=== PATIENT | female | born 1960 | race Caucasian/White ===

== ENCOUNTER 2017-08-14 09:02 | Outpatient (CLI) | payer BC ==
--- NOTE | 2017-08-14 11:10 | RAD ---
PA AND LATERAL CHEST: Date: 08/14/17 INDICATION: History of dyspnea. COMPARISON: Prior exam dated 07/21/17. FINDINGS: Lungs are clear. Cardiomediastinal silhouette is within normal limits. There are surgical clips withi n the right upper quadrant. There is scattered degenerative change. IMPRESSION: No acute cardiopulmonary abnormality when compared to the prior study dated 07/21/17. POS: TONY
== END 2017-08-14 09:03 | disposition home or self-care (01) ==
LOC: RAD 09:02
PROVIDERS: ATTEND Internal Medicine Critical Care Medicine
DX: R06.00 Dyspnea, unspecified (principal)
CPT/HCPCS: 71046

== ENCOUNTER 2017-08-27 09:14 | Outpatient (CLI) | payer BC | END 2017-08-27 09:15 | disposition home or self-care (01) | LOC: BICMAMMO 09:14 | PROVIDERS: ATTEND Internal Medicine | DX: N64.4 Mastodynia (principal); Z80.3 Family history of malignant neoplasm of breast | CPT/HCPCS: 77066; G0279 ==

== ENCOUNTER 2017-12-18 09:13 | Outpatient (CLI) | payer BC ==
--- NOTE | 2017-12-18 10:46 | CT ---
CT ABDOMEN AND PELVIS WITH CONTRAST: Technique: Multiple axial tomograms were obtained through the abdomen and pelvis with IV enhancement. Oral contrast was administered. Indications: Abdominal pain. Diverticulitis. Surgical history includes cholecystectomy and appendecto my. FINDINGS: The lungs are clear. Liver, spleen, and pancreas unremarkable. Stomach and duodenum unremarkable. Adrenal glands appear normal. Kidneys are unremarkable. Small bowel loops appear normal caliber. There is stool throughout the colon. Diverticulosis of the left colon. There is some minimal strandin g along the lower left colon which could represent changes from prior diverticulitis or possibly some early minimal diverticulitis change. There is no evidence of significant inflammatory process by CT. No extraluminal gas or fluid collection seen. Aorta is normal caliber. No adenopathy. Images through the pelvis show evidence of hysterectomy. There is a small umbilical hernia with mesenteric fat herniated through the defect. IMPRESSION: 1. Diverticulosis in the left colon. Mild stranding along the mid to lower left colon could represent changes from mild or prior diverticulitis. No evidence of extraluminal gas, fluid, or abscess. POS: [facility]
[2017-12-18] MEDS ORDERED: Iopamidol 370 76% 100 ML VIAL ONE (15:19)
== END 2017-12-18 09:14 | disposition home or self-care (01) ==
LOC: CT 09:13
PROVIDERS: ATTEND Internal Medicine
DX: K57.92 Diverticulitis of intestine, part unspecified, without perforation or abscess without bleeding (principal); K57.30 Diverticulosis of large intestine without perforation or abscess without bleeding
CPT/HCPCS: 74177

== ENCOUNTER 2018-05-01 10:31 | Inpatient (IN) | payer BC ==
[2018-05-01 10:57] LABS: #Eosinphils 0.1 thou/uL (0.0-0.7); #Lymphocytes 3.2 thou/uL (1.20-3.40); #Monocytes 0.4 thou/uL (0.11-0.59); #Neutrophils 3.7 thou/uL (1.40-6.50); %Basophils 0.4 % (0.0-1.0); %Eosinophils 1.4 % (0.0-10.0); %Lymphocytes 43.4 % (21.0-51.0); %Monocytes 4.9 % (0.0-10.0); Hemoglobin 14.8 g/dL (12.0-16.0); Mean Corpuscular HGB CONC 33.8 g/dL (32.0-36.0); Mean Corpuscular Hemoglobin 29.7 pg (27.0-31.0); Mean Corpuscular Volume 87.9 fL (78.0-98.0); Mean Platelet Volume 7.5 fL (7.4-10.4); Platelet Count 200 thou/uL (130-400); RBC Distribution Width 11.9 % (11.5-14.5); White Blood Cell (WBC) Count 7.5 thou/uL (4.8-10.8)
[2018-05-01] MEDS ORDERED: Lorazepam 2 MG/ML VIAL ONE (11:10)
--- NOTE | 2018-05-01 11:14 | RAD ---
CHEST 1 VIEW: HISTORY: Chest pain. COMPARISON: Chest radiograph 08/14/2017. FINDINGS: Heart size is enlarged. Mild pulmonary venous congestion and early edema. No pneumothorax or large effusion. IMPRESSION: Cardiomegaly and mild pulmonary edema. POS: T[facility]
[2018-05-01 11:17] LABS: ALT (SGPT) 22 U/L (8-55); AST (SGOT) 25 U/L (5-34); Albumin 4.4 g/dL (3.5-5.0); Alkaline Phosphatase 87 U/L (40-150); Anion Gap 15 mmol/L (10-20); BUN (Urea Nitrogen) 16 mg/dL (9.8-20.1); Bilirubin, Total 0.7 mg/dL (0.2-1.2); CK (CPK) 165 U/L (29-168); Calc. Creatinine Clearance 0 mL/min (70-130); Calcium 9.5 mg/dL (7.8-10.44); Carbon Dioxide 23 mmol/L (22-29); Chloride 106 mmol/L (98-107); Estimated GFR-MDRD 84; Globulin 2.8 g/dL (2.4-3.5); Glucose 110 mg/dL (70-105); Lipase 15 U/L (8-78); Potassium 4.2 mmol/L (3.5-5.1); Protein, Total 7.2 g/dL (6.0-8.3); Sodium 140 mmol/L (136-145)
[2018-05-01] MEDS ORDERED: Ondansetron PF 4 MG/2 ML Vial ONE (11:19)
[2018-05-01] MEDS ORDERED: Nitroglycerin 2% Ointment 1 INCH/1 GM Packet ONE (11:40)
[2018-05-01] MEDS ORDERED: Acetaminophen 325 MG TAB PO PRN (13:43)
[2018-05-01 13:55] VITALS: BMI 40.1
[2018-05-01 14:56] LABS: Cardiac Risk 2.2 (Less than 4.5)
[2018-05-01 15:02] LABS: Troponin I 0.034 ng/mL (< 0.028)
[2018-05-01] MEDS: Lorazepam 2 MG/ML VIAL SLOW IVP PRN (15:19)
[2018-05-01 17:47] LABS: Troponin I 0.028 ng/mL (< 0.028)
[2018-05-01] MEDS: Mometasone/Formoterol 120 PUFF INHALER INH SCH (19:21)
[2018-05-01] MEDS: Losartan 25 MG TAB PO SCH (20:03)
[2018-05-01] MEDS: Atorvastatin Calcium 40 MG TAB PO SCH (20:03)
[2018-05-01] MEDS: diphenhydrAMINE 25 MG CAP PO SCH (20:03)
[2018-05-01] MEDS: Famotidine 20 MG TAB PO SCH (20:04)
[2018-05-01] MEDS: Venlafaxine HCl XR 75 MG CAP PO SCH (20:04)
[2018-05-01] MEDS: Montelukast Sodium 10 mg Tablet PO SCH (20:04)
[2018-05-01] MEDS: Ipratropium Bromide 0.03% Nasal Inhaler 30 ml Bottle EA NARE SCH (20:05)
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
[2018-05-02 05:30] LABS: #Basophils 0.1 thou/uL (0.0-0.2); #Eosinphils 0.2 thou/uL (0.0-0.7); #Lymphocytes 2.9 thou/uL (1.20-3.40); #Monocytes 0.4 thou/uL (0.11-0.59); #Neutrophils 3.6 thou/uL (1.40-6.50); %Basophils 1.2 % (0.0-1.0); %Eosinophils 2.2 % (0.0-10.0); %Lymphocytes 40.8 % (21.0-51.0); %Monocytes 6.2 % (0.0-10.0); %Neutrophils 49.7 % (42.0-75.0); Hemoglobin 13.3 g/dL (12.0-16.0); Mean Corpuscular HGB CONC 33.1 g/dL (32.0-36.0); Mean Corpuscular Hemoglobin 29.7 pg (27.0-31.0); Mean Corpuscular Volume 89.6 fL (78.0-98.0); Mean Platelet Volume 7.1 fL (7.4-10.4); Platelet Count 168 thou/uL (130-400); RBC Distribution Width 11.8 % (11.5-14.5); Red Blood Cell (RBC) Count 4.48 mill/uL (4.20-5.40); White Blood Cell (WBC) Count 7.2 thou/uL (4.8-10.8)
[2018-05-02 05:44] LABS: Anion Gap 11 mmol/L (10-20); BUN (Urea Nitrogen) 16 mg/dL (9.8-20.1); Calc. Creatinine Clearance 149 mL/min (70-130); Calcium 8.9 mg/dL (7.8-10.44); Carbon Dioxide 27 mmol/L (22-29); Chloride 106 mmol/L (98-107); Estimated GFR-MDRD Greater than 90; Glucose 106 mg/dL (70-105); Sodium 140 mmol/L (136-145)
[2018-05-02] MEDS: Mometasone/Formoterol 120 PUFF INHALER INH SCH ×2 (06:48→18:34)
[2018-05-02] MEDS: Famotidine 20 MG TAB PO SCH ×2 (09:38→21:04)
[2018-05-02] MEDS: Enoxaparin Sodium 40 MG/0.4 ML SYRINGE SC SCH (09:38)
[2018-05-02] MEDS: Ipratropium Bromide 0.03% Nasal Inhaler 30 ml Bottle EA NARE SCH ×2 (09:39→21:06)
[2018-05-02] MEDS: Lorazepam 2 MG/ML VIAL SLOW IVP PRN (09:41)
[2018-05-02] MEDS ORDERED: Lorazepam 2 MG/ML VIAL SLOW IVP SCH (10:45)
--- NOTE | 2018-05-02 11:37 | PDOC.EVN ---
Event Note - Event Note Event Note: pt seen and examined bedside, history obtained from her, plan of care discussed with OPERATIONS RECRUITER, please see her note for details
--- NOTE | 2018-05-02 14:30 | NM ---
CARDIAC SPECT: CLINICAL HISTORY: 57-year-old female with chest pain, hypertension, and dyslipidemia. TECHNIQUE: A myocardial perfusion scan was performed using the single isotope two day protocol with 33 mCi techn etium-99m sestamibi injected intravenously for both stress and rest images. Pharmacologic stress with Lexiscan was monitored and interpreted by Dr. Recinos. FINDINGS: There is a small fixed defect in the distal anteroseptal wall. No reversible defects are seen. GATED SPECT LVEF: 35%. WALL MOTION EXAM: Global hypokinesis. IMPRESSION: No evidence of reversible ischemia. POS: [facility]
--- NOTE | 2018-05-02 15:10 | PDOC.PN ---
- Subjective Encounter Start Date: 05/02/18 Encounter Start Time: 12:30 Subjective: Patient in stress lab most of AM. Reports she still feels chest pressure -: Denies dizziness, palpations, cough. -: Was feeling very anxious during stress, reports feeling better - Objective Resuscitation Status - Order Detail: 05/01/18 17:11 Resuscitation Status Routine Co-Sign Provider: Resuscitation Status: FULL: Full Resuscitation Discussed with: patient Vital Signs & Weight: Vital Signs (12 hours) Temp Pulse Resp BP BP Pulse Ox 05/02/18 11:44 97.8 F 95 16 170/100 H 97 05/02/18 07:24 97.9 F 85 16 148/82 H 96 05/02/18 06:48 85 24 H 99 05/02/18 04:01 98.0 F 81 19 143/85 H 98 Weight Weight 99.427 kg I&O: 05/01/18 05/02/18 05/03/18 06:59 06:59 06:59 Intake Total 1060 Output Total 1000 Balance 60 Result Diagrams: 05/02/18 05:13 05/02/18 05:13 Phys Exam - Physical Examination HEENT: PERRLA, moist MMs Neck: no nodes, no JVD, full ROM Respiratory: clear to auscultation bilateral Cardiovascular: RRR, no significant murmur Gastrointestinal: soft, non-tender Musculoskeletal: pulses present trace edema to BLE Neurological: moves all 4 limbs Lymphatic: no nodes Psychiatric: normal affect, A&O x 3 Skin: no rash, normal turgor, cap refill <2 seconds Dx/Plan (1) Chest pain Code(s): R07.9 - CHEST PAIN, UNSPECIFIED Status: Acute (2) Pulmonary vascular congestion Code(s): R09.89 - OTH SYMPTOMS AND SIGNS INVOLVING THE CIRC AND RESP SYSTEMS Status: Acute (3) Hypertension Code(s): I10 - ESSENTIAL (PRIMARY) HYPERTENSION Status: Acute (4) Anxiety Code(s): F41.9 - ANXIETY DISORDER, UNSPECIFIED Status: Acute (5) Dyspnea on exertion Code(s): R06.09 - OTHER FORMS OF DYSPNEA Status: Acute - Plan cont current plan of care patient with EF 35%, no previous Echo or hx of CHF, vascular congestion/CXR -: C/o of fatigue, chest pain, GARCIA for several months -: ECHO taken, will await read and consult cardiology -: Stress neg for ischemia, patient informed of results -: Case discussed this am with Dr. Haines * .
[2018-05-02] MEDS ORDERED: ALPRAZolam 0.5 MG TAB PO SCH (17:00)
[2018-05-02] MEDS ORDERED: Acetaminophen 325 MG TAB PO PRN (18:33)
[2018-05-02] MEDS: Montelukast Sodium 10 mg Tablet PO SCH (21:04)
[2018-05-02] MEDS: diphenhydrAMINE 25 MG CAP PO SCH (21:04)
[2018-05-02] MEDS: Venlafaxine HCl XR 75 MG CAP PO SCH (21:04)
[2018-05-02] MEDS: ALPRAZolam 0.5 MG TAB PO SCH (21:05)
[2018-05-02] MEDS: Atorvastatin Calcium 40 MG TAB PO SCH (21:05)
[2018-05-02] MEDS: Losartan 25 MG TAB PO SCH (21:05)
[2018-05-03 05:09] LABS: #Basophils 0.1 thou/uL (0.0-0.2); #Eosinphils 0.1 thou/uL (0.0-0.7); #Monocytes 0.4 thou/uL (0.11-0.59); #Neutrophils 2.7 thou/uL (1.40-6.50); %Basophils 1.1 % (0.0-1.0); %Lymphocytes 47.7 % (21.0-51.0); %Monocytes 6.8 % (0.0-10.0); %Neutrophils 42.4 % (42.0-75.0); Hemoglobin 13.2 g/dL (12.0-16.0); Mean Corpuscular HGB CONC 33.4 g/dL (32.0-36.0); Mean Corpuscular Volume 89.6 fL (78.0-98.0); Mean Platelet Volume 7.4 fL (7.4-10.4); Platelet Count 158 thou/uL (130-400); RBC Distribution Width 11.6 % (11.5-14.5); White Blood Cell (WBC) Count 6.3 thou/uL (4.8-10.8)
[2018-05-03 05:34] LABS: Anion Gap 8 mmol/L (10-20); BUN (Urea Nitrogen) 10 mg/dL (9.8-20.1); Calc. Creatinine Clearance 160 mL/min (70-130); Calcium 8.8 mg/dL (7.8-10.44); Carbon Dioxide 29 mmol/L (22-29); Chloride 106 mmol/L (98-107); Estimated GFR-MDRD Greater than 90; Glucose 114 mg/dL (70-105); Potassium 4.1 mmol/L (3.5-5.1); Sodium 139 mmol/L (136-145)
[2018-05-03] MEDS: Mometasone/Formoterol 120 PUFF INHALER INH SCH ×2 (07:19→19:33)
[2018-05-03] MEDS: Lorazepam 1 MG TAB PO PRN ×3 (08:40→20:39)
[2018-05-03] MEDS: Furosemide 20 MG TAB PO SCH (08:40)
[2018-05-03] MEDS: Famotidine 20 MG TAB PO SCH ×2 (08:40→20:38)
[2018-05-03] MEDS: ALPRAZolam 0.5 MG TAB PO SCH (08:41)
[2018-05-03] MEDS: Ipratropium Bromide 0.03% Nasal Inhaler 30 ml Bottle EA NARE SCH ×2 (08:41→22:14)
[2018-05-03] MEDS: Enoxaparin Sodium 40 MG/0.4 ML SYRINGE SC SCH (08:41)
[2018-05-03] MEDS ORDERED: Metoprolol Tartrate 25 MG TAB PO SCH (09:00)
--- NOTE | 2018-05-03 09:49 | PDOC.PN ---
- Subjective Encounter Start Date: 05/03/18 Encounter Start Time: 09:30 Subjective: patient reports feeling very anxious this morning -: Was given Ativan and states she was feeling better -: Denies palpation, CP, SOB currently - Objective Resuscitation Status - Order Detail: 05/01/18 17:11 Resuscitation Status Routine Co-Sign Provider: Resuscitation Status: FULL: Full Resuscitation Discussed with: patient Vital Signs & Weight: Vital Signs (12 hours) Temp Pulse Resp BP Pulse Ox 05/03/18 07:31 97.9 F 82 18 165/97 H 96 05/03/18 07:19 80 16 Weight Weight 100.289 kg I&O: 05/02/18 05/03/18 05/04/18 06:59 06:59 06:59 Intake Total 1060 2580 Output Total 1000 2900 Balance 60 -320 Result Diagrams: 05/03/18 04:54 05/03/18 03:30 Phys Exam - Physical Examination HEENT: PERRLA, moist MMs Neck: no nodes, no JVD, full ROM Respiratory: no wheezing, clear to auscultation bilateral Cardiovascular: RRR, no significant murmur Gastrointestinal: soft, non-tender Neurological: non-focal, normal sensation Lymphatic: no nodes Psychiatric: normal affect, A&O x 3 Deviation from normal: Patient feeling better after Ativan, hx of anxiety Skin: no rash, normal turgor, cap refill <2 seconds Dx/Plan (1) Chest pain Code(s): R07.9 - CHEST PAIN, UNSPECIFIED Status: Acute (2) Pulmonary vascular congestion Code(s): R09.89 - OTH SYMPTOMS AND SIGNS INVOLVING THE CIRC AND RESP SYSTEMS Status: Acute (3) Hypertension Code(s): I10 - ESSENTIAL (PRIMARY) HYPERTENSION Status: Acute (4) Anxiety Code(s): F41.9 - ANXIETY DISORDER, UNSPECIFIED Status: Acute (5) Dyspnea on exertion Code(s): R06.09 - OTHER FORMS OF DYSPNEA Status: Acute (6) Cardiomyopathy Code(s): I42.9 - CARDIOMYOPATHY, UNSPECIFIED Status: Acute (7) Congestive heart failure Code(s): I50.9 - HEART FAILURE, UNSPECIFIED Status: Acute - Plan cont current plan of care, out of bed/ambulate, DVT proph w/lovenox Dr. Wright here to see patient, plan to do cardiac cath tomorrow -: Will convert to Inp status -: Echo with EF 20-25%, new CHF, cardiomyopathy (last Echo normal) -: Dr. Wright to change BP meds, add Coreg -: Patient requesting Ativan instead of Xanax when dc'd, has f/u appt on 05/08 * .
[2018-05-03] MEDS ORDERED: Communication Order-Pharmacy FS SCH (10:00)
--- NOTE | 2018-05-03 12:26 | STRESS ---
Acquisition Time: 2018-05-02 10:00:29 Total Exercise Time: 00:01:00 Test Indications: CHEST PAIN Medications: Protocol: LEXISCAN Max HR: 102 BPM 61% of Pred: 165 BPM Max BP: 160/090 mmHG Max Work Load: 1.0 METS RESTING ECG: NORMAL SINUS RHYTHM AT 87 BPM WITH RARE PVC'S SYMPTOMS: SHORTNESS OF BREATH AND CHEST PAIN NORMAL BP RESPONSE ECTOPY: NONE ECG STRESS: NO SIGNIFICANT CHANGES INTERPRETATION: AWAIT NUCLEAR IMAGES FOR DEFINITIVE DIAGNOSIS Confirmed by SHARON BENTON ([id number]), story editor DEVON MONTES ([id number]) on 05/03/2018 12:25:28 PM Referred By: DANE HAWLEY Confirmed By:SHARON BENTON
[2018-05-03] MEDS: Carvedilol 6.25 MG TAB PO SCH (16:37)
[2018-05-03] MEDS: diphenhydrAMINE 25 MG CAP PO SCH (20:38)
[2018-05-03] MEDS: Atorvastatin Calcium 40 MG TAB PO SCH (20:38)
[2018-05-03] MEDS: Venlafaxine HCl XR 75 MG CAP PO SCH (20:39)
[2018-05-03] MEDS: Montelukast Sodium 10 mg Tablet PO SCH (20:39)
[2018-05-04] MEDS: Lorazepam 1 MG TAB PO PRN ×4 (05:58→20:38)
[2018-05-04] MEDS: Carvedilol 6.25 MG TAB PO SCH ×2 (05:58→17:00)
[2018-05-04] MEDS: Famotidine 20 MG TAB PO SCH ×2 (05:58→20:36)
[2018-05-04] MEDS: Mometasone/Formoterol 120 PUFF INHALER INH SCH ×2 (06:10→18:45)
--- NOTE | 2018-05-04 09:52 | PDOC.PN ---
- Subjective Encounter Start Date: 05/04/18 Encounter Start Time: 09:50 -: old records requested/rev Pt seen andexamined, chart reviewed in its entirety. This is my first visit with this patinet follow up forCP, newdiagnosis of CM,suspected ischemic,to chemistry laboratory technician today No F/C, no N/V/d/C,no CPorSOB,no cough. all systems reviewed and neg x as above - Objective Resuscitation Status - Order Detail: 05/01/18 17:11 Resuscitation Status Routine Co-Sign Provider: Resuscitation Status: FULL: Full Resuscitation Discussed with: patient MAR Reviewed: Yes Vital Signs & Weight: Vital Signs (12 hours) Temp Pulse Resp BP Pulse Ox 05/04/18 07:00 98.2 F 82 16 138/86 96 05/04/18 06:10 89 16 96 05/04/18 03:35 97.7 F 84 18 146/85 H 95 Weight Weight 221 lb 1.6 oz I&O: 05/03/18 05/04/18 05/05/18 06:59 06:59 06:59 Intake Total 2580 720 Output Total 2900 300 Balance -320 420 Result Diagrams: 05/03/18 04:54 05/03/18 03:30 Radiology Reviewed by me: Yes EKG Reviewed by me: Yes Phys Exam - Physical Examination Constitutional: NAD HEENT: PERRLA, moist MMs, sclera anicteric, oral pharynx no lesions Neck: no nodes, no JVD Respiratory: no wheezing, no rales, no rhonchi, clear to auscultation bilateral Cardiovascular: RRR, no significant murmur, no rub Gastrointestinal: soft, non-tender, no distention, positive bowel sounds Musculoskeletal: pulses present, edema present Neurological: non-focal, normal sensation, moves all 4 limbs Lymphatic: no nodes Psychiatric: normal affect, A&O x 3 Skin: no rash, normal turgor, cap refill <2 seconds Dx/Plan (1) Anxiety Code(s): F41.9 - ANXIETY DISORDER, UNSPECIFIED Status: Acute (2) Cardiomyopathy Code(s): I42.9 - CARDIOMYOPATHY, UNSPECIFIED Status: Acute Qualifiers: Cardiomyopathy type: unspecified Qualified Code(s): I42.9 - Cardiomyopathy , unspecified (3) Chest pain Code(s): R07.9 - CHEST PAIN, UNSPECIFIED Status: Acute Qualifiers: Chest pain type: unspecified Qualified Code(s): R07.9 - Chest pain, unspecified (4) Congestive heart failure Code(s): I50.9 - HEART FAILURE, UNSPECIFIED Status: Acute Qualifiers: Heart failure type: systolic Heart failure chronicity: acute Qualified Code(s): I50.21 - Acute systolic (congestive) heart failure (5) Dyspnea on exertion Code(s): R06.09 - OTHER FORMS OF DYSPNEA Status: Acute (6) Hypertension Code(s): I10 - ESSENTIAL (PRIMARY) HYPERTENSION Status: Chronic Qualifiers: Hypertension type: essential hypertension Qualified Code(s): I10 - Essential (primary) hypertension (7) Pulmonary vascular congestion Code(s): R09.89 - OTH SYMPTOMS AND SIGNS INVOLVING THE CIRC AND RESP SYSTEMS Status: Acute - Plan cont current plan of care * . cath today
[2018-05-04] MEDS ORDERED: Heparin 10,000 UNITS/1 ML VIAL ONE (13:21)
[2018-05-04] MEDS ORDERED: Nitroglycerin 100MG/250ML BOT 0 ML ONE (13:21)
[2018-05-04] MEDS ORDERED: Protamine Sulfate 50 MG/5 ML VIAL ONE (13:21)
[2018-05-04] MEDS ORDERED: Midazolam HCl 2 mg/2 ml Vial ONE (14:07)
[2018-05-04] MEDS ORDERED: hydrALAZINE 20 MG/ML VIAL ONE (14:12)
[2018-05-04] MEDS ORDERED: Nitroglycerin 2% Ointment 1 INCH/1 GM Packet ONE ×2 (14:17→14:20)
[2018-05-04] MEDS ORDERED: Nitroglycerin 4.9 GM Bottle ONE (14:27)
[2018-05-04] MEDS ORDERED: Sodium Chloride 0.45% 250 ML IV SCH (16:00)
[2018-05-04] MEDS: Furosemide 20 MG TAB PO SCH (17:00)
[2018-05-04] MEDS: Ipratropium Bromide 0.03% Nasal Inhaler 30 ml Bottle EA NARE SCH ×2 (17:01→20:35)
[2018-05-04] MEDS: diphenhydrAMINE 25 MG CAP PO SCH (20:36)
[2018-05-04] MEDS: Atorvastatin Calcium 40 MG TAB PO SCH (20:36)
[2018-05-04] MEDS: Montelukast Sodium 10 mg Tablet PO SCH (20:37)
[2018-05-04] MEDS: Sacubitril 49 MG/Valsartan 51 MG TABLET PO SCH (20:37)
[2018-05-04] MEDS: Venlafaxine HCl XR 75 MG CAP PO SCH (20:38)
[2018-05-05] MEDS: Mometasone/Formoterol 120 PUFF INHALER INH SCH ×2 (07:17→19:07)
[2018-05-05] MEDS: Carvedilol 6.25 MG TAB PO SCH ×2 (08:18→16:32)
[2018-05-05] MEDS: Spironolactone 25 MG TAB PO SCH (08:19)
[2018-05-05] MEDS: Famotidine 20 MG TAB PO SCH ×2 (08:19→20:55)
[2018-05-05] MEDS: Furosemide 20 MG TAB PO SCH (08:19)
[2018-05-05] MEDS: Sacubitril 49 MG/Valsartan 51 MG TABLET PO SCH ×2 (08:19→20:55)
[2018-05-05] MEDS: Ipratropium Bromide 0.03% Nasal Inhaler 30 ml Bottle EA NARE SCH ×2 (08:19→20:55)
[2018-05-05] MEDS ORDERED: Carvedilol 6.25 MG TAB PO SCH ×3 (08:52→09:45)
[2018-05-05] MEDS: Lorazepam 1 MG TAB PO PRN ×2 (11:14→20:55)
[2018-05-05] MEDS ORDERED: Ondansetron ODT 4 MG TAB PO PRN (14:36)
[2018-05-05] MEDS: Ondansetron PF 4 MG/2 ML Vial IVP PRN (14:57)
--- NOTE | 2018-05-05 15:22 | PDOC.PN ---
- Subjective Encounter Start Date: 05/05/18 Encounter Start Time: 12:25 follow up for ischemic cardiomyopathy, acute systolic CHF No F/C, no N/V/D/c, no CP or SOb, no cough or sputum all systems reviewed and neg x as above - Objective Resuscitation Status - Order Detail: 05/01/18 17:11 Resuscitation Status Routine Co-Sign Provider: Resuscitation Status: FULL: Full Resuscitation Discussed with: patient MAR Reviewed: Yes Vital Signs & Weight: Vital Signs (12 hours) Temp Pulse Resp BP BP Pulse Ox 05/05/18 11:07 98 F 62 18 119/71 95 05/05/18 08:00 97.9 F 78 18 144/84 H 97 05/05/18 07:17 79 14 97 05/05/18 04:00 97.3 F L 70 16 120/59 L 96 Weight Weight 221 lb 1.6 oz I&O: 05/04/18 05/05/18 05/06/18 06:59 06:59 06:59 Intake Total 720 685 Output Total 300 Balance 420 685 Result Diagrams: 05/03/18 04:54 05/03/18 03:30 Phys Exam - Physical Examination Constitutional: NAD HEENT: PERRLA, moist MMs, sclera anicteric, oral pharynx no lesions Neck: no nodes, no JVD, supple, full ROM Respiratory: no wheezing, no rales, no rhonchi, clear to auscultation bilateral Cardiovascular: RRR, no significant murmur, no rub Gastrointestinal: soft, no distention, positive bowel sounds Musculoskeletal: no edema, pulses present Neurological: non-focal, normal sensation, moves all 4 limbs Lymphatic: no nodes Psychiatric: normal affect, A&O x 3 Skin: no rash, normal turgor, cap refill <2 seconds Dx/Plan (1) Anxiety Code(s): F41.9 - ANXIETY DISORDER, UNSPECIFIED Status: Acute (2) Cardiomyopathy Code(s): I42.9 - CARDIOMYOPATHY, UNSPECIFIED Status: Acute Qualifiers: Cardiomyopathy type: unspecified Qualified Code(s): I42.9 - Cardiomyopathy , unspecified Comment: likely ischemic. depressed function s/p cath lifevest per cards, D/C when arranged (3) Chest pain Code(s): R07.9 - CHEST PAIN, UNSPECIFIED Status: Acute Qualifiers: Chest pain type: unspecified Qualified Code(s): R07.9 - Chest pain, unspecified (4) Congestive heart failure Code(s): I50.9 - HEART FAILURE, UNSPECIFIED Status: Acute Qualifiers: Heart failure type: systolic Heart failure chronicity: acute Qualified Code(s): I50.21 - Acute systolic (congestive) heart failure (5) Dyspnea on exertion Code(s): R06.09 - OTHER FORMS OF DYSPNEA Status: Acute (6) Hypertension Code(s): I10 - ESSENTIAL (PRIMARY) HYPERTENSION Status: Chronic Qualifiers: Hypertension type: essential hypertension Qualified Code(s): I10 - Essential (primary) hypertension (7) Pulmonary vascular congestion Code(s): R09.89 - OTH SYMPTOMS AND SIGNS INVOLVING THE CIRC AND RESP SYSTEMS Status: Acute - Plan * .
[2018-05-05] MEDS: diphenhydrAMINE 25 MG CAP PO SCH (20:55)
[2018-05-05] MEDS: Atorvastatin Calcium 40 MG TAB PO SCH (20:55)
[2018-05-05] MEDS: Montelukast Sodium 10 mg Tablet PO SCH (20:55)
[2018-05-05] MEDS: Venlafaxine HCl XR 75 MG CAP PO SCH (20:55)
[2018-05-06] MEDS: Mometasone/Formoterol 120 PUFF INHALER INH SCH (06:26)
[2018-05-06] MEDS: Lorazepam 1 MG TAB PO PRN (08:03)
[2018-05-06] MEDS: Sacubitril 49 MG/Valsartan 51 MG TABLET PO SCH (08:04)
[2018-05-06] MEDS: Carvedilol 6.25 MG TAB PO SCH (08:04)
[2018-05-06] MEDS: Ipratropium Bromide 0.03% Nasal Inhaler 30 ml Bottle EA NARE SCH (08:04)
[2018-05-06] MEDS: Famotidine 20 MG TAB PO SCH (08:04)
[2018-05-06] MEDS: Furosemide 20 MG TAB PO SCH (08:04)
[2018-05-06] MEDS: Spironolactone 25 MG TAB PO SCH (08:04)
[2018-05-06 09:43] LABS: Anion Gap 13 mmol/L (10-20); BUN (Urea Nitrogen) 15 mg/dL (9.8-20.1); Calc. Creatinine Clearance 152 mL/min (70-130); Calcium 9.6 mg/dL (7.8-10.44); Carbon Dioxide 23 mmol/L (22-29); Chloride 104 mmol/L (98-107); Estimated GFR-MDRD Greater than 90; Glucose 116 mg/dL (70-105); Potassium 4.1 mmol/L (3.5-5.1); Sodium 136 mmol/L (136-145)
[2018-05-06 11:12] VITALS: BP 99/55; TEMP 97.8
[2018-05-06] MEDS: Ondansetron PF 4 MG/2 ML Vial IVP PRN (11:15)
== END 2018-05-06 15:03 | disposition home or self-care (01) | DRG 286 ==
LOC: ERS 10:31 → 2SW 11:40 → OBSVTOIN 11:40 → 2NO 13:29
PROVIDERS: ADMIT Internal Medicine; ATTEND Internal Medicine
PROC: 4A023N7 Measurement of Cardiac Sampling and Pressure, Left Heart, Percutaneous Approach (ICD-10-PCS; principal; 2018-05-04)
PROC: B2111ZZ Fluoroscopy of Multiple Coronary Arteries using Low Osmolar Contrast (ICD-10-PCS; 2018-05-04)
PROC: B2151ZZ Fluoroscopy of Left Heart using Low Osmolar Contrast (ICD-10-PCS; 2018-05-04)
DX: I11.0 Hypertensive heart disease with heart failure (principal); I50.21 Acute systolic (congestive) heart failure; E78.5 Hyperlipidemia, unspecified; K57.90 Diverticulosis of intestine, part unspecified, without perforation or abscess without bleeding; F41.9 Anxiety disorder, unspecified; R09.89 Other specified symptoms and signs involving the circulatory and respiratory systems; I25.5 Ischemic cardiomyopathy; Z90.49 Acquired absence of other specified parts of digestive tract
CPT/HCPCS: 36415; 71045; 78452; 80048; 80053; 80061; 82550; 83690; 83880; 84443; 84484; 85025; 85379; 93005; 93017; 93306; 93458; 93798; 94664; 94760; 96361; 96374; 96375; 99152; A9500; C1769; J0360; J1644; J1650; J2060; J2250; J2405; J2720

== ENCOUNTER 2018-06-03 01:41 | Inpatient (IN) | payer BC ==
[2018-06-03] MEDS ORDERED: Ondansetron PF 4 MG/2 ML Vial ONE ×2 (02:11→07:01)
[2018-06-03 02:16] LABS: #Basophils 0.1 thou/uL (0.0-0.2); #Eosinphils 0.1 thou/uL (0.0-0.7); #Monocytes 0.5 thou/uL (0.11-0.59); #Neutrophils 3.5 thou/uL (1.40-6.50); %Basophils 1.1 % (0.0-1.0); %Eosinophils 1.7 % (0.0-10.0); %Lymphocytes 48.3 % (21.0-51.0); %Monocytes 6.5 % (0.0-10.0); %Neutrophils 42.5 % (42.0-75.0); Hemoglobin 14.5 g/dL (12.0-16.0); Mean Corpuscular HGB CONC 34.5 g/dL (32.0-36.0); Mean Corpuscular Hemoglobin 30.9 pg (27.0-31.0); Mean Corpuscular Volume 89.7 fL (78.0-98.0); Mean Platelet Volume 7.9 fL (7.4-10.4); Platelet Count 208 thou/uL (130-400); RBC Distribution Width 11.8 % (11.5-14.5); Red Blood Cell (RBC) Count 4.68 mill/uL (4.20-5.40); White Blood Cell (WBC) Count 8.3 thou/uL (4.8-10.8)
[2018-06-03 02:46] LABS: ALT (SGPT) 34 U/L (8-55); AST (SGOT) 33 U/L (5-34); Acetaminophen Less than 6.0 mcg/mL (10.0-30.0); Albumin 4.2 g/dL (3.5-5.0); Alcohol 207 mg/dL (Less than 10); Alkaline Phosphatase 81 U/L (40-150); Anion Gap 20 mmol/L (10-20); BUN (Urea Nitrogen) 37 mg/dL (9.8-20.1); Calc. Creatinine Clearance 0 mL/min (70-130); Calcium 9.7 mg/dL (7.8-10.44); Carbon Dioxide 20 mmol/L (22-29); Chloride 100 mmol/L (98-107); Estimated GFR-MDRD 27; Globulin 3.2 g/dL (2.4-3.5); Glucose 86 mg/dL (70-105); Potassium 4.2 mmol/L (3.5-5.1); Protein, Total 7.4 g/dL (6.0-8.3); Salicylate Less than 8.0 mg/dL (15.0-30.0); Sodium 136 mmol/L (136-145)
[2018-06-03] MEDS ORDERED: Multivitamins, Adult 10 ML, Thiamine HCl 100 MG, Folic Acid 1 MG in Dextrose 5 %-0.45 %... IV SCH (04:30)
[2018-06-03 07:22] LABS: Troponin I Less than 0.010 ng/mL (< 0.028)
[2018-06-03 07:26] LABS: Alcohol 104 mg/dL (Less than 10); Anion Gap 18 mmol/L (10-20); BUN (Urea Nitrogen) 43 mg/dL (9.8-20.1); Calc. Creatinine Clearance 0 mL/min (70-130); Calcium 8.6 mg/dL (7.8-10.44); Carbon Dioxide 17 mmol/L (22-29); Chloride 104 mmol/L (98-107); Estimated GFR-MDRD 30; Glucose 111 mg/dL (70-105); Potassium 3.8 mmol/L (3.5-5.1); Sodium 135 mmol/L (136-145)
[2018-06-03] MEDS ORDERED: Senokot S 8.6-50 MG TAB PO PRN (09:01)
[2018-06-03] MEDS ORDERED: Bisacodyl 5 MG TAB PO PRN (09:01)
[2018-06-03 10:11] LABS: Troponin I Less than 0.010 ng/mL (< 0.028)
[2018-06-03] MEDS: Sodium Chloride 0.9% 1,000 ML IV SCH (13:30)
[2018-06-03] MEDS ORDERED: Ondansetron PF 4 MG/2 ML Vial IVP PRN (15:18)
[2018-06-03] MEDS ORDERED: Ondansetron ODT 4 MG TAB SL PRN (15:18)
[2018-06-03 15:23] VITALS: BMI 40.5
[2018-06-03] MEDS: Heparin 5,000 UNITS/ML VIAL SC SCH ×2 (15:48→20:38)
[2018-06-03] MEDS: Mometasone/Formoterol 120 PUFF INHALER INH SCH (18:33)
--- NOTE | 2018-06-03 20:12 | HP ---
CHIEF COMPLAINT: Complaints of generalized weakness. HISTORY OF PRESENT ILLNESS: The patient is a 57-year-old female with a history of systolic heart failure who came into the hospital with complaints of generalized body aches and pains. The patient stated that for the past few days since Friday she has been having some upper respiratory tract symptoms starting our with sore throat, cough, some body aches and pains. The patient states that her family members were also sick at home. She stated that she took some alcoholic beverages yesterday to help her relieve her symptoms. She has also been under a lot of stress according to her. She denies any nausea, vomiting, or diarrhea. She denies any chest pain or worsening shortness of breath. She did state that she has been very compliant with her medications. The patient also states that before she came into the hospital, had been very dizzy, so she came into the hospital for further evaluation. In the ER, the patient was found to be hypotensive and was given some IV fluids and was admitted to the hospital for further evaluation. PAST MEDICAL HISTORY: History of 1. Hypertension. 2. Systolic heart failure. 3. Obesity. 4. History of hyperlipidemia. PAST SURGICAL HISTORY: She has had a x3, cholecystectomy, appendectomy, and hysterectomy. SOCIAL HISTORY: The patient drinks socially. Denies any drug use or smoking history. She is currently a full code. She lives at home with her daughter and son-in-law and grand kids. REVIEW OF SYSTEMS: All negative except the ones mentioned above in the HPI. ALLERGIES: SHE IS ALLERGIC TO DEMEROL, LEVAQUIN, LISINOPRIL, MORPHINE AND VICODIN. HOME MEDICATIONS: She is on losartan 50 mg daily, Effexor 225 mg daily, alprazolam 0.5 mg daily, singular 10 mg daily, Lipitor 20 mg daily, Benadryl 25 daily, Symbicort daily. PHYSICAL EXAMINATION: VITAL SIGNS: Are as of the following, her temperature was 98.8, heart rate was 67, 18 respirations, 96% room air. Blood pressure was in the 110s over 60s. GENERAL: She is awake, alert, and oriented x3. Does not appear in any distress. She is still drowsy, however, easily arousable. HEENT: Normocephalic, atraumatic. No lymphadenopathy noted. Pupils are equal, reactive to light. No erythema noted around the back of her throat or around her tonsil area. CV: S1, S2 present. No murmurs, rubs, or gallops. LUNGS: Clear to auscultation. No rhonchi or wheezes noted. ABDOMEN: Soft and nontender. Bowel sounds are present x2. EXTREMITIES: No edema. Pedal pulses are present x2. NEUROVASCULAR: No focal deficits noted. SKIN: No cuts, lesions, or bruises noted. LABORATORY RESULTS: As of the following; WBC of 8.3, hemoglobin of 15.5, hematocrit of 41.9. Her troponins x3 were negative. Chemistry; sodium of 135, potassium of 3.8, BUN of 43, creatinine of 1.75. Her urine was not done. Her plasma alcohol level was 100, initially was 207, then went down to 104. ASSESSMENT/PLAN: The patient is a very pleasant 57-year-old female who presents to the hospital with some upper respiratory symptoms and also some dizziness and also some generalized weakness. 1. Dehydration. This could be possibly due to her drinking. We will start the patient on some gentle hydration. Her blood pressure has responded really well with some gentle fluids. 2. Acute kidney injury. Her creatinine is elevated from her baseline. We will continue her hydration, this is possibly due to dehydration. 3. Possible upper respiratory infection versus bronchitis. Given patient's symptoms, we will swab her for a viral panel to make sure we are not missing any viral etiology. However, the chest x-ray did not show any acute abnormalities. 4. Systolic heart failure, compensated. We will continue her medications, except we will hold her blood pressure medications given her low blood pressure for now. 5. Deep venous thrombosis prophylaxis. We will put the patient on some SCDs. Job ID: [id number]
[2018-06-03] MEDS ORDERED: Venlafaxine HCl XR 75 MG CAP PO SCH (21:00)
[2018-06-03] MEDS ORDERED: Non-Formulary Item 1 EACH (Budesonide-Formoterol [Symbicort 160-4.5] 1 PUFF) INH SCH (21:00)
[2018-06-03] MEDS ORDERED: Atorvastatin Calcium 40 MG TAB PO SCH (21:00)
[2018-06-04] MEDS: Acetaminophen 325 MG TAB PO PRN ×3 (02:50→12:23)
[2018-06-04 05:55] LABS: #Basophils 0.1 thou/uL (0.0-0.2); #Eosinphils 0.2 thou/uL (0.0-0.7); #Lymphocytes 2.4 thou/uL (1.20-3.40); #Monocytes 0.7 thou/uL (0.11-0.59); %Basophils 0.7 % (0.0-1.0); %Eosinophils 2.3 % (0.0-10.0); %Lymphocytes 33.3 % (21.0-51.0); %Neutrophils 54.6 % (42.0-75.0); Anion Gap 14 mmol/L (10-20); BUN (Urea Nitrogen) 23 mg/dL (9.8-20.1); Calc. Creatinine Clearance 111 mL/min (70-130); Calcium 8.5 mg/dL (7.8-10.44); Carbon Dioxide 22 mmol/L (22-29); Chloride 106 mmol/L (98-107); Estimated GFR-MDRD 69; Glucose 103 mg/dL (70-105); Hemoglobin 12.8 g/dL (12.0-16.0); Mean Corpuscular HGB CONC 33.5 g/dL (32.0-36.0); Mean Corpuscular Hemoglobin 30.9 pg (27.0-31.0); Mean Platelet Volume 7.6 fL (7.4-10.4); Platelet Count 157 thou/uL (130-400); Potassium 4.1 mmol/L (3.5-5.1); RBC Distribution Width 11.5 % (11.5-14.5); Red Blood Cell (RBC) Count 4.14 mill/uL (4.20-5.40); Sodium 138 mmol/L (136-145); White Blood Cell (WBC) Count 7.3 thou/uL (4.8-10.8)
[2018-06-04] MEDS: Mometasone/Formoterol 120 PUFF INHALER INH SCH (06:54)
[2018-06-04] MEDS: Sodium Chloride 0.9% 1,000 ML IV SCH (06:57)
[2018-06-04] MEDS: Heparin 5,000 UNITS/ML VIAL SC SCH (08:26)
[2018-06-04] MEDS ORDERED: Sacubitril 49 MG/Valsartan 51 MG TABLET PO SCH ×3 (09:52→21:00)
[2018-06-04] MEDS ORDERED: Non-Formulary Item 1 EACH (Carvedilol [Coreg] 12.5 MG) PO SCH (09:52)
[2018-06-04] MEDS ORDERED: Furosemide 20 MG TAB PO SCH ×2 (09:52→10:45)
[2018-06-04] MEDS ORDERED: Carvedilol 6.25 MG TAB PO SCH ×2 (10:45→21:00)
[2018-06-04 11:44] VITALS: BP 155/72; TEMP 98.2
[2018-06-05] MEDS ORDERED: Furosemide 20 MG TAB PO SCH (09:00)
[2018-06-05] MEDS ORDERED: Non-Formulary Item 1 EACH (Omeprazole [Omeprazole] 20 MG) PO SCH (09:00)
--- NOTE | 2018-06-05 15:05 | DIS ---
DATE OF ADMISSION: 06/03/2018 DATE OF DISCHARGE: 06/04/2018 DISCHARGE DIAGNOSES: As of the followin. Dehydration. 2. Acute kidney injury. 3. Possible upper respiratory infection versus bronchitis. 4. Systolic heart failure, compensated. HOSPITAL COURSE: The patient is a 57-year-old female who initially presented to the hospital with generalized complaints of upper respiratory issues and was found to be very hypotensive. She was given 2 L of normal saline and was put on IV fluids. Her respiratory viral panel was negative. She was found to have a plasma alcohol level of 207 at that time. The patient continued to improve throughout the hospital stay. On the day of discharge, her vitals were at baseline and she was discharged home. PHYSICAL EXAMINATION: VITAL SIGNS: Her vitals on discharge was 98.2, 74, 50, 97% on room air, 155/72. GENERAL: She was awake, alert, and oriented x3. Does not appear in any distress. CV: S1, S2 present. No murmurs, rubs, or gallops. ABDOMEN: Soft and nontender. Bowel sounds are present x2. EXTREMITIES: No edema. DISCHARGE HOME MEDICATIONS: 1. As of the followin. Omeprazole 20 mg daily. 3. Thiamine 100 mg daily. 4. Aldactone 25 mg daily. 5. Coreg 12.5 b.i.d. 6. Furosemide 20 mg daily. 7. Ativan 1 mg q.8 p.r.n. 8. Venlafaxine 225 mg at bedtime. 9. Atorvastatin 40 mg daily. 10. Entresto 1 p.o. b.i.d. The patient was educated on abstinence from alcohol given her history of systolic heart failure, EF of 20% to 25%. She understood and stated that she will try to have abstinence from alcohol. Her troponins x3 were negative. On discharge her creatinine was back to baseline at 0.86. Job ID: [id number]
== END 2018-06-04 13:23 | disposition home or self-care (01) | DRG 683 ==
LOC: ERS 01:41 → ERHOLD 06:30 → 2NO 15:25
PROVIDERS: ADMIT Hospitalist; ATTEND Hospitalist
DX: N17.9 Acute kidney failure, unspecified (principal); I50.20 Unspecified systolic (congestive) heart failure; I11.0 Hypertensive heart disease with heart failure; E66.9 Obesity, unspecified; E86.0 Dehydration; I95.9 Hypotension, unspecified; F10.129 Alcohol abuse with intoxication, unspecified; E78.5 Hyperlipidemia, unspecified; Z90.49 Acquired absence of other specified parts of digestive tract; Z90.710 Acquired absence of both cervix and uterus; Z88.1 Allergy status to other antibiotic agents; Z88.5 Allergy status to narcotic agent; Z88.8 Allergy status to other drugs, medicaments and biological substances; Z79.899 Other long term (current) drug therapy; Z68.39 Body mass index [BMI] 39.0-39.9, adult
CPT/HCPCS: 36415; 80048; 80053; 80307; 84484; 85025; 87633; 87798; 93005; 96361; 96365; 96366; 96375; 96376; J1644; J2405; J3411; J7042; J7050; Q0162

== ENCOUNTER 2018-07-02 12:22 | Emergency (ER) | payer BC ==
[2018-07-02 12:54] LABS: #Eosinphils 0.1 thou/uL (0.0-0.7); #Lymphocytes 1.4 thou/uL (1.20-3.40); #Monocytes 0.4 thou/uL (0.11-0.59); #Neutrophils 5.6 thou/uL (1.40-6.50); %Basophils 0.3 % (0.0-1.0); %Eosinophils 0.9 % (0.0-10.0); %Lymphocytes 18.6 % (21.0-51.0); %Neutrophils 75.3 % (42.0-75.0); Hemoglobin 14.7 g/dL (12.0-16.0); Mean Corpuscular HGB CONC 32.7 g/dL (32.0-36.0); Mean Corpuscular Volume 91.6 fL (78.0-98.0); Mean Platelet Volume 7.4 fL (7.4-10.4); Platelet Count 169 thou/uL (130-400); RBC Distribution Width 11.6 % (11.5-14.5); White Blood Cell (WBC) Count 7.4 thou/uL (4.8-10.8)
[2018-07-02 13:02] LABS: ALT (SGPT) 41 U/L (8-55); AST (SGOT) 28 U/L (5-34); Albumin 4.7 g/dL (3.5-5.0); Alkaline Phosphatase 82 U/L (40-150); Anion Gap 16 mmol/L (10-20); BUN (Urea Nitrogen) 16 mg/dL (9.8-20.1); Bilirubin, Total 1.4 mg/dL (0.2-1.2); CK (CPK) 76 U/L (29-168); Calc. Creatinine Clearance 0 mL/min (70-130); Calcium 10.1 mg/dL (7.8-10.44); Carbon Dioxide 25 mmol/L (22-29); Chloride 101 mmol/L (98-107); Estimated GFR-MDRD 76; Glucose 129 mg/dL (70-105); Potassium 3.7 mmol/L (3.5-5.1); Protein, Total 7.7 g/dL (6.0-8.3); Sodium 138 mmol/L (136-145)
[2018-07-02 13:03] LABS: Acetaminophen Less than 6.0 mcg/mL (10.0-30.0); Alcohol Less than 10 mg/dL (Less than 10); Salicylate Less than 8.0 mg/dL (15.0-30.0)
--- NOTE | 2018-07-02 13:23 | RAD ---
CHEST 1 VIEW: Date: 07/02/18 HISTORY: Pain. FINDINGS: Normal cardiac silhouette. Pulmonary vessels and hilum are normal. Costophrenic angles are clear. No masses or consolidation. No pneumothorax or osseous abnormalities. IMPRESSION: No acute cardiopulmonary process. POS: TONY
[2018-07-02] MEDS ORDERED: Acetaminophen 500 MG TAB ONE (15:37)
[2018-07-02] MEDS ORDERED: Ketorolac Tromethamine 30 MG/ML VIAL ONE (16:03)
[2018-07-02] MEDS ORDERED: Ondansetron PF 4 MG/2 ML Vial ONE (16:03)
== END 2018-07-02 16:04 | disposition home or self-care (01) ==
LOC: ERS 12:22
DX: F41.9 Anxiety disorder, unspecified (principal); R07.89 Other chest pain; I10 Essential (primary) hypertension; E78.1 Pure hyperglyceridemia; Z79.899 Other long term (current) drug therapy; Z79.891 Long term (current) use of opiate analgesic
CPT/HCPCS: 71045; 80053; 80307; 82550; 83880; 84484; 85025; 93005; 96374; 96375; J1885; J2405

== ENCOUNTER 2018-09-03 13:18 | Outpatient (CLI) | payer BC ==
--- NOTE | 2018-09-03 14:39 | MMO ---
Bilateral MAMMO Bilat Screen [facility]. CLINICAL HISTORY: Patient is 57 years old and is seen for screening. The patient has the following family history of breast cancer: mother and 4 maternal aunts. The patient has a history of left Excisional Biopsy in 2010 - benign. VIEWS: The views performed were: bilateral craniocaudal with tomosynthesis and bilateral mediolateral oblique with tomosynthesis. FILMS COMPARED: The present examination has been compared to prior imaging studies performed at [facility] on 08/18/2017 and 08/27/2017. MAMMOGRAM FINDINGS: There are scattered fibroglandular densities. Finding 1: There are stable benign appearing calcifications seen in both breasts. Finding 2: There are multiple stable nodules of varying size seen in both breasts. There are no suspicious masses, suspicious calcifications, or new areas of architectural distortion. IMPRESSION: THERE IS NO MAMMOGRAPHIC EVIDENCE OF MALIGNANCY. A ROUTINE FOLLOW-UP MAMMOGRAM IN 1 YEAR IS RECOMMENDED. THE RESULTS OF THIS EXAM WERE SENT TO THE PATIENT. ACR BI-RADS Category 2 - Benign finding MAMMOGRAPHY NOTE: 1. A negative mammogram report should not delay a biopsy if a dominant of clinically suspicious mass is present. 2. Approximately 10% to 15% of breast cancers are not detected by mammography. 3. Adenosis and dense breasts may obscure an underlying neoplasm.
== END 2018-09-03 13:19 | disposition home or self-care (01) ==
LOC: BICMAMMO 13:18
PROVIDERS: ATTEND Internal Medicine
DX: Z12.31 Encounter for screening mammogram for malignant neoplasm of breast (principal); Z80.3 Family history of malignant neoplasm of breast
CPT/HCPCS: 77063; 77067

== ENCOUNTER 2019-07-21 07:51 | Outpatient (CLI) | payer BC ==
[2019-07-21 17:26] LABS: #Eosinphils 0.2 thou/uL (0.0-0.7); #Lymphocytes 3.8 thou/uL (1.20-3.40); #Monocytes 0.8 thou/uL (0.11-0.59); #Neutrophils 4.8 thou/uL (1.40-6.50); %Basophils 0.5 % (0.0-1.0); %Eosinophils 2.3 % (0.0-10.0); %Monocytes 8.7 % (0.0-10.0); %Neutrophils 49.5 % (42.0-75.0); Hemoglobin 13.8 g/dL (12.0-16.0); Mean Corpuscular HGB CONC 33.5 g/dL (32.0-36.0); Mean Corpuscular Hemoglobin 29.8 pg (27.0-31.0); Mean Corpuscular Volume 88.9 fL (78.0-98.0); Platelet Count 210 thou/uL (130-400); RBC Distribution Width 12.2 % (11.5-14.5); Red Blood Cell (RBC) Count 4.62 mill/uL (4.20-5.40); White Blood Cell (WBC) Count 9.6 thou/uL (4.8-10.8)
[2019-07-21 17:51] LABS: Anion Gap 14 mmol/L (10-20); BUN (Urea Nitrogen) 14 mg/dL (9.8-20.1); Calc. Creatinine Clearance 0 mL/min (70-130); Calcium 10.3 mg/dL (7.8-10.44); Carbon Dioxide 27 mmol/L (22-29); Chloride 103 mmol/L (98-107); Estimated GFR-MDRD 88; Glucose 91 mg/dL (70-105); Potassium 4.3 mmol/L (3.5-5.1); Sodium 140 mmol/L (136-145)
== END 2019-07-21 07:52 | disposition home or self-care (01) ==
LOC: LABBT 07:51
PROVIDERS: ATTEND Specialist
DX: Z01.812 Encounter for preprocedural laboratory examination (principal); E66.01 Morbid (severe) obesity due to excess calories
CPT/HCPCS: 80048; 85025

== ENCOUNTER 2019-07-21 14:30 | Inpatient (IN) | payer BC ==
[2019-07-21 17:16] VITALS: BMI 41.3
[2019-07-27] MEDS ORDERED: Ketorolac Tromethamine 30 MG/ML VIAL ONE (06:22)
[2019-07-27] MEDS ORDERED: Scopolamine 1.5 mg/72 hour Patch ONE (06:22)
[2019-07-27] MEDS ORDERED: Heparin 5,000 UNITS/ML VIAL ONE (06:22)
[2019-07-27] MEDS ORDERED: Acetaminophen 500 MG TAB ONE (06:25)
[2019-07-27] MEDS ORDERED: Lidocaine 1% w/Epinephrine 1:100K 20 ML VIAL ONE ×2 (06:39→07:48)
[2019-07-27] MEDS ORDERED: Bupivacaine PF 0.5% 30 ML VIAL ONE ×2 (06:39→07:48)
[2019-07-27] MEDS ORDERED: Fentanyl 100 MCG/2 ML VIAL ONE ×2 (06:50→09:44)
[2019-07-27] MEDS ORDERED: SUGAMMADEX SODIUM 500 MG/5 ML VIAL ONE (06:50)
[2019-07-27] MEDS ORDERED: Ketorolac Tromethamine 30 MG/ML VIAL IVP PRN (09:27)
[2019-07-27] MEDS ORDERED: Promethazine HCl 25 MG/ML VIAL SLOW IVP PRN (09:27)
[2019-07-27] MEDS ORDERED: Promethazine HCl 25 MG/ML VIAL IM PRN (09:27)
[2019-07-27] MEDS ORDERED: Ondansetron HCl/PF 4 MG/2 ML Vial IVP PRN (09:27)
[2019-07-27] MEDS ORDERED: PHENYLEPHRINE-NS 100 MCG/ML 10 ML SYRINGE ONE (10:27)
[2019-07-27] MEDS ORDERED: Glycopyrrolate 0.2 MG/ML 5 ML SYRINGE ONE (10:27)
[2019-07-27] MEDS ORDERED: PROPOFOL 200 MG/20 ML VIAL ONE (10:27)
[2019-07-27] MEDS ORDERED: Rocuronium Bromide 10 MG/ML (10ML VIAL) ONE (10:27)
[2019-07-27] MEDS ORDERED: Lidocaine 1% PF 5 ML VIAL ONE (10:27)
[2019-07-27] MEDS ORDERED: EPHEDRINE 25 MG/5 ML SYRINGE ONE (10:27)
[2019-07-27] MEDS ORDERED: Ondansetron PF 4 MG/2 ML Vial ONE (10:27)
[2019-07-27] MEDS ORDERED: hydrALAZINE 20 MG/ML VIAL SLOW IVP PRN (10:57)
[2019-07-27] MEDS ORDERED: Morphine 2 MG/ML SYRINGE SLOW IVP PRN (10:57)
[2019-07-27] MEDS ORDERED: diphenhydrAMINE 50 MG/ML VIAL IVP PRN (10:57)
[2019-07-27] MEDS ORDERED: Dextrose 50% Abboject 50 ML SYRINGE SLOW IVP PRN (10:57)
[2019-07-27] MEDS ORDERED: Dextrose 5% in Water 1,000 ML IV PRN (10:57)
[2019-07-27] MEDS ORDERED: Insulin Regular 300 UNITS/3 ML VIAL SC PRN (10:57)
[2019-07-27] MEDS ORDERED: Ondansetron PF 4 MG/2 ML Vial IVP PRN (10:57)
[2019-07-27] MEDS ORDERED: Sodium Chloride 0.9% (PF) 10 ML VIAL FS PRN (11:06)
[2019-07-27] MEDS: Ketorolac Tromethamine 30 MG/ML VIAL IVP SCH ×3 (11:14→23:28)
[2019-07-27] MEDS: 1/2 NS w/KCL 20 mEq 1,000 ML IV SCH ×2 (11:14→17:55)
[2019-07-27] MEDS: Fentanyl 100 MCG/2 ML VIAL SLOW IVP PRN ×3 (13:02→20:31)
[2019-07-27] MEDS: Promethazine HCl 25 MG/ML VIAL IM PRN ×2 (15:29→20:44)
[2019-07-27] MEDS ORDERED: Lorazepam 1 MG TAB PO PRN (18:35)
[2019-07-27] MEDS ORDERED: Enoxaparin Sodium 40 MG/0.4 ML SYRINGE SC SCH (21:00)
[2019-07-28] MEDS: Fentanyl 100 MCG/2 ML VIAL SLOW IVP PRN (04:56)
[2019-07-28] MEDS: Ketorolac Tromethamine 30 MG/ML VIAL IVP SCH ×2 (04:57→11:38)
[2019-07-28] MEDS: Promethazine HCl 25 MG/ML VIAL IM PRN (04:57)
[2019-07-28] MEDS: 1/2 NS w/KCL 20 mEq 1,000 ML IV SCH ×2 (05:10→11:37)
[2019-07-28 06:00] LABS: #Eosinphils 0.2 thou/uL (0.0-0.7); #Monocytes 0.6 thou/uL (0.11-0.59); %Basophils 0.1 % (0.0-1.0); %Lymphocytes 30.1 % (21.0-51.0); %Monocytes 6.6 % (0.0-10.0); %Neutrophils 61.3 % (42.0-75.0); Hemoglobin 12.7 g/dL (12.0-16.0); Mean Corpuscular HGB CONC 33.5 g/dL (32.0-36.0); Mean Corpuscular Hemoglobin 29.5 pg (27.0-31.0); Mean Corpuscular Volume 88.2 fL (78.0-98.0); Mean Platelet Volume 8.3 fL (7.4-10.4); Platelet Count 209 thou/uL (130-400); RBC Distribution Width 12.1 % (11.5-14.5); Red Blood Cell (RBC) Count 4.32 mill/uL (4.20-5.40); White Blood Cell (WBC) Count 9.8 thou/uL (4.8-10.8)
[2019-07-28 06:21] LABS: Anion Gap 13 mmol/L (10-20); BUN (Urea Nitrogen) 9 mg/dL (9.8-20.1); Calc. Creatinine Clearance 152 mL/min (70-130); Calcium 8.7 mg/dL (7.8-10.44); Carbon Dioxide 23 mmol/L (22-29); Chloride 103 mmol/L (98-107); Estimated GFR-MDRD Greater than 90; Glucose 90 mg/dL (70-105); Potassium 3.8 mmol/L (3.5-5.1); Sodium 135 mmol/L (136-145)
[2019-07-28] MEDS ORDERED: Pantoprazole 40 MG VIAL IVP SCH (09:00)
[2019-07-28 11:24] VITALS: BP 133/84; TEMP 99.3
[2019-07-28] MEDS ORDERED: Hydrocodone-Acetamin 15 ML UDCUP PO PRN (12:40)
--- NOTE | 2019-07-29 11:30 | OP ---
DATE OF PROCEDURE: 07/27/2019 PREOPERATIVE DIAGNOSIS: Morbid obesity. POSTOPERATIVE DIAGNOSIS: Morbid obesity. PROCEDURE PERFORMED: Laparoscopic sleeve gastrectomy using the ViSiGi device. ANESTHESIA: General endotracheal. INDICATIONS: The patient is a 58-year-old female. She has undergone preoperative evaluation and education and presents at this time for sleeve gastrectomy treatment of her obesity. DESCRIPTION OF OPERATION: Informed consent was obtained. The patient was taken to the operating room where general endotracheal anesthesia was obtained with the patient in supine position. Abdomen was prepped with ChloraPrep and draped in sterile fashion. Local anesthetic was infiltrated and 5 mm supraumbilical incision was created through which Veress needle was passed to the peritoneal cavity and pneumoperitoneum established using carbon dioxide up to a pressure of 15 mmHg. A 5 mm trocar port was passed through this same incision. Laparoscopic camera was passed through this port. Under direct vision, 4 additional ports were placed including bilateral 5 mm subcostal ports, a 12 mm right paramedian port and a 15 mm left paramedian port. A 5 mm epigastric incision was created through which Candace retractor was passed into the abdominal cavity and used to retract the left lobe of the liver. The patient was placed into reverse Trendelenburg position. The ViSiGi device was advanced within the stomach and used to decompress this. The pylorus was identified and beginning 4 cm proximal to the pylorus, the omentum and vascular tissue along the greater curvature was divided using the LigaSure in an ascending fashion up to the angle of His. All posterior adhesions were mobilized. The short gastric vessels were carefully divided and then hemostasis was maintained using the LigaSure. Once this was completely mobilized, the ViSiGi was carefully positioned at the level of the pylorus and placed to suction, which was clearly defining the lesser curvature of the stomach. The gastrectomy was then performed using a series of fires of the Fairchance stapler using a green load followed by a gold load and a series of blue loads until completion of the gastrectomy. The ViSiGi along the lesser curvature was used as a size 36 bougie to guide in the gastric division. Care was taken to avoid narrowing the incisura or the gastroesophageal junction. The integrity of the staple line was then assessed by insufflating gas through the ViSiGi while irrigating along the staple line. There was no evidence of an air leak. There was no evidence of bleeding along the staple line. The resected stomach was then removed through the 15 mm port and the fascia was closed with 0 Vicryl suture using a GraNee needle. I then closed the 12 mm port also using the GraNee needle and 0 Vicryl suture. The Candace retractor was removed. All ports and instruments were removed under direct vision. All irrigant was aspirated. Pneumoperitoneum was carefully evacuated. 0.25% Marcaine with epinephrine was infiltrated into each port site. Skin edges approximated with 4-0 Monocryl subcuticular suture. Dermabond was placed externally. There were no complications. The patient tolerated the procedure well and was taken to recovery room in stable condition. FINDINGS: The patient's surgery was uncomplicated. She had typical anatomy. There were no complications nor any significant bleeding. She tolerated the procedure well and was taken to recovery room in stable condition. Job ID: [id number]
== END 2019-07-28 15:05 | disposition home or self-care (01) | DRG 620 ==
LOC: SURG A 07-27 06:03
PROVIDERS: ADMIT Specialist; ATTEND Specialist
PROC: 0DB64Z3 Excision of Stomach, Percutaneous Endoscopic Approach, Vertical (ICD-10-PCS; principal; 2019-07-27)
DX: E66.01 Morbid (severe) obesity due to excess calories (principal); I42.8 Other cardiomyopathies; E78.5 Hyperlipidemia, unspecified; F41.9 Anxiety disorder, unspecified; I11.0 Hypertensive heart disease with heart failure; I50.9 Heart failure, unspecified; Z68.42 Body mass index [BMI] 45.0-49.9, adult; Z88.1 Allergy status to other antibiotic agents; Z88.8 Allergy status to other drugs, medicaments and biological substances
CPT/HCPCS: 36415; 36416; 80048; 85025; 88307; 88312; C9113; J0360; J0694; J1644; J1650; J1885; J2001; J2405; J2550; J2704; J3010; J3480; S0020

== ENCOUNTER 2020-07-05 13:07 | Outpatient (CLI) | payer BC ==
--- NOTE | 2020-07-05 13:27 | RAD ---
Exam: 2 views lumbar spine HISTORY: Acute low back pain with right sided sciatica FINDINGS: 5 lumbar type vertebra. There is partial sacralization of L5 with pseudoarthrosis of the le ft L5 ala and the adjacent sacrum. Lumbar spine vertebral body height is maintained. No fracture. Mild degenerative disc disease at L5-S1 Visualized sacrum and bony pelvis are intact IMPRESSION: 1. No fracture 2. Mild degenerative changes at L5-S1. Additional imaging such as MRI if clinically warranted
== END 2020-07-05 13:08 | disposition home or self-care (01) ==
LOC: BICRAD 13:07
PROVIDERS: ATTEND Internal Medicine
DX: M54.41 Lumbago with sciatica, right side (principal); M47.817 Spondylosis without myelopathy or radiculopathy, lumbosacral region
CPT/HCPCS: 72100

== ENCOUNTER 2020-07-05 13:29 | Outpatient (CLI) | payer BC ==
--- NOTE | 2020-07-05 15:41 | MMO ---
Bilateral MAMMO Bilat Screen [facility]. CLINICAL HISTORY: Patient is 59 years old and is seen for screening. The patient has the following family history of breast cancer: mother and maternal aunt. The patient has no personal history of cancer. The patient has a history of left Stereotatic Biopsy in August, - benign and left Excisional Biopsy in 2009 - benign. VIEWS: The views performed were: bilateral craniocaudal with tomosynthesis and bilateral mediolateral oblique with tomosynthesis. FILMS COMPARED: The present examination has been compared to prior imaging studies performed at [facility] on 02/22/2016, 08/18/2017, 08/27/2017 and 09/03/2018. This study has been interpreted with the assistance of computer-aided detection. MAMMOGRAM FINDINGS: There are scattered fibroglandular densities. Benign calcifications are noted bilaterally. Nodularity is stable. Left biopsy clip. There are no suspicious masses, suspicious calcifications, or new areas of architectural distortion. IMPRESSION: THERE IS NO MAMMOGRAPHIC EVIDENCE OF MALIGNANCY. A ROUTINE FOLLOW-UP MAMMOGRAM IN 1 YEAR IS RECOMMENDED. THE RESULTS OF THIS EXAM WERE SENT TO THE PATIENT. ACR BI-RADS Category 2 - Benign finding MAMMOGRAPHY NOTE: 1. A negative mammogram report should not delay a biopsy if a dominant of clinically suspicious mass is present. 2. Approximately 10% to 15% of breast cancers are not detected by mammography. 3. Adenosis and dense breasts may obscure an underlying neoplasm. Reported by: DAX MIRZA MD Electonically Signed: [id number]
== END 2020-07-05 13:30 | disposition home or self-care (01) ==
LOC: BICMAMMO 13:29
PROVIDERS: ATTEND Internal Medicine
DX: Z12.31 Encounter for screening mammogram for malignant neoplasm of breast (principal); Z80.3 Family history of malignant neoplasm of breast; Z91.89 Other specified personal risk factors, not elsewhere classified
CPT/HCPCS: 77063; 77067

== ENCOUNTER 2021-09-19 15:23 | Outpatient (CLI) | payer OTHER, BC | END 2021-09-19 15:24 | disposition home or self-care (01) | LOC: BICMAMMO 15:23 | PROVIDERS: ATTEND Internal Medicine | DX: Z12.31 Encounter for screening mammogram for malignant neoplasm of breast (principal); Z80.3 Family history of malignant neoplasm of breast; Z91.89 Other specified personal risk factors, not elsewhere classified | CPT/HCPCS: 77063; 77067 ==

== ENCOUNTER 2023-06-16 13:21 | Outpatient (CLI) | payer MEDICARE, BC | END 2023-06-16 13:22 | disposition home or self-care (01) | LOC: BICRAD 13:21 | PROVIDERS: ATTEND Nurse Practitioner Family | DX: R09.89 Other specified symptoms and signs involving the circulatory and respiratory systems (principal) | CPT/HCPCS: 71046; 87635 ==